=== PATIENT | female | born 1975 | race Caucasian/White ===

== ENCOUNTER 2017-07-09 10:41 | Observation (INO) | payer SELFPAY ==
[~2017-07-09] VITALS: Ht 165.1 cm; Wt 59.3 kg
[2017-07-09 11:43] LABS: EOSINOPHIL (%) 0 % (0-5); HEMATOCRIT 49.6 % (36.0-46.0); IMMATURE GRANULOCYTE (%) 0.3 % (0.0-0.7); INSTRUMENT ABS NEUTROPHIL CT 11.6 K/uL; LYMPHOCYTE COUNT 1.7 K/uL (1.0-2.8); MCHC 34.3 G/DL (30.0-36.0); MCV 84.5 FL (83-99); MONOCYTE (%) 4.9 % (3-12); MONOCYTE COUNT 0.7 K/uL (0-0.8); NEUTROPHIL (%) 82.7 % (45-76); NEUTROPHIL COUNT 11.6 K/uL (1.8-6.4); PLATELET COUNT 387 K/uL (156-360); RBC DIS.WIDTH-CV 13.3 % (11.8-14.6); RBC DIS.WIDTH-SD 41.3 % (39-53); RED BLOOD COUNT 5.87 M/uL (3.80-5.20)
[2017-07-09 11:51] LABS: CHLORIDE 101 mEq/L (99-109); SODIUM 139 mEq/L (136-147)
[2017-07-09 11:54] LABS: GLUCOSE 141 mg/dL (70-99)
[2017-07-09 11:55] LABS: ANION GAP 13 MEQ/L (2-14); TOTAL BILIRUBIN 0.6 mg/dL (0.0-1.0)
[2017-07-09 11:57] LABS: ALKALINE PHOSPHATASE 119 IU/L (3-129); GFR ESTIMATE (CALCULATED) > 59 mL/min/
[2017-07-09 11:58] LABS: UREA NITROGEN (BUN) 19 mg/dL (9-23)
[2017-07-09 12:01] LABS: LIPASE 15 U/L (1.0-51.0)
[2017-07-09 12:06] LABS: QUANTITATIVE HCG < 4.0 MIU/ML
[2017-07-09 18:03] VITALS: BP 185/115
[2017-07-09 19:03] LABS: ADD MIUA? YES; BILIRUBIN NEGATIVE; BLOOD SMALL; GLUCOSE (STRIP) NEGATIVE; KETONES NEGATIVE; LEUKOCYTES MODERATE; NITRITE POSITIVE; PROTEIN (STRIP) 100; UROBILINOGEN 0.2 MG/DL (0.2-1.0)
[2017-07-09 19:30] VITALS: BP 150/82
[2017-07-09 19:32] LABS: EPITHELIAL CELLS 1+ /HPF; MUCUS 1+ /LPF; RED BLOOD CELLS 0-5 /HPF (0-5)
[2017-07-09 19:33] LABS: BACTERIA 3+ /HPF; CASTS NONE SEEN /LPF; CRYSTALS NONE SEEN; UCUL ADDED? YES
[2017-07-09 19:36] LABS: COLOR YELLOW ((YELLOW))
[2017-07-09 19:37] LABS: SPECIFIC GRAVITY 1.084 (1.000-1.030)
== END 2017-07-09 23:23 | disposition left against medical advice (07) ==
LOC: EME 10:41 → EDOF 16:27 → ENRESERV 16:28 → 5WEST 17:50
PROVIDERS: Emergency Medicine
DX: K52.9 Noninfective gastroenteritis and colitis, unspecified (principal); E87.6 Hypokalemia; E86.9 Volume depletion, unspecified; R03.0 Elevated blood-pressure reading, without diagnosis of hypertension; R00.1 Bradycardia, unspecified; F17.210 Nicotine dependence, cigarettes, uncomplicated; D72.829 Elevated white blood cell count, unspecified; F11.11 Opioid abuse, in remission; Z88.6 Allergy status to analgesic agent; Z88.2 Allergy status to sulfonamides; Z88.8 Allergy status to other drugs, medicaments and biological substances
CPT/HCPCS: 74177; 80053; 81003; 83605; 83690; 84702; 85025; 87040; 87077; 87086; 87186; 87506; 99281; 99285; C9113; G0378; J0744; J1630; J1650; J2405; J3010; J3480; J7030; S0030